=== PATIENT | female | born 1945 | race Asian ===

== ENCOUNTER 2022-08-15 13:29 | Inpatient (IN) | payer OTHER ==
[~2022-08-15] VITALS: Ht 152.4 cm; Wt 54.4 kg
[2022-08-15] MEDS ORDERED: PANT40TA49 PO (14:29)
[2022-08-15] MEDS ORDERED: MOME13HF INH (14:29)
[2022-08-15] MEDS ORDERED: ONDA-97 PO (14:29)
[2022-08-15] MEDS ORDERED: SIME80TA15 PO (14:29)
[2022-08-15] MEDS ORDERED: SENN-261 PO (14:29)
[2022-08-15] MEDS ORDERED: BISA10SU11 RC (14:29)
[2022-08-15] MEDS ORDERED: FERR325T27 PO (14:29)
[2022-08-15] MEDS ORDERED: AMLO-213 PO (14:29)
[2022-08-15] MEDS ORDERED: FOLI0.4T6 PO (14:29)
[2022-08-15] MEDS ORDERED: SODI1TAB66 PO (14:29)
[2022-08-15] MEDS ORDERED: LIDO20SO13 MM (14:29)
[2022-08-15] MEDS ORDERED: IPRA12.9 INH (14:29)
[2022-08-15] MEDS ORDERED: ALBU18HF2 IH (14:29)
[2022-08-15 15:17] LABS: BASOPHILS % (AUTO) 0.2 % (0.0-2.0); HEMATOCRIT 41 % (33-45); LYMPHOCYTES % (AUTO) 18.3 % (20.0-44.0); MEAN CORPUSCULAR HGB CONC 29 g/dl (31.0-36.0); MEAN CORPUSCULAR VOLUME 91 fL (82-100); MONOCYTES % (AUTO) 9.5 % (2.0-12.0); PLATELET COUNT (AUTO) 427 K/uL (150-450); RED BLOOD CELL COUNT(AUTO) 4.54 MIL/uL (4.0-5.2); WHITE BLOOD COUNT (AUTO) 11.1 K/uL (4.3-11.0)
[2022-08-15 15:35] LABS: SERUM AMMONIA 27 umol/L (11-32)
[2022-08-15 15:48] LABS: ALANINE AMINOTRANSFERASE 32 U/L (12-78); ALBUMIN 3.8 g/dL (3.4-5.0); ALKALINE PHOSPHATASE 98 U/L (46-116); ASPARTATE AMINOTRANSFERASE 53 U/L (15-37); BILIRUBIN,DIRECT 0.1 mg/dL (0.0-0.2); BILIRUBIN,TOTAL 0.3 mg/dL (0.2-1.0); CALCIUM, SERUM 9.3 mg/dL (8.5-10.1); CARBON DIOXIDE 23 mmol/L (21-32); CREATININE 2.5 mg/dL (0.6-1.3); GLUCOSE 112 mg/dL (74-106); POTASSIUM 4.3 mmol/L (3.5-5.1); TOTAL PROTEIN, SERUM 9.6 g/dL (6.4-8.2); UREA NITROGEN, BLOOD 30 mg/dL (7-18)
[2022-08-15 16:15] LABS: CHLORIDE 153 mmol/L (98-107); SODIUM SERUM 187 mmol/L (136-145)
[2022-08-15 16:55] LABS: BILIRUBIN,URINE NEGATIVE (NEGATIVE); COLOR,URINE YELLOW (YELLOW); LEUKOCYTE ESTERASE ,URINE NEGATIVE (NEGATIVE); NITRITE, URINE NEGATIVE (NEGATIVE); PROTEIN,URINE NEGATIVE (NEGATIVE); UGLUCOSE NEGATIVE (NEGATIVE); UROBILINOGEN,URINE 0.2 EU/dL (0.2)
[2022-08-15] MEDS ORDERED: VANCOMYCIN 1 GM in IV D5W 250 ML IV ONE (17:00)
[2022-08-15] MEDS ORDERED: PIPERACILLIN /TAZOBACTAM 3.375 G in IV D5W 50 ML IV ONE (17:00)
[2022-08-15] MEDS ORDERED: ACETAMINOPHEN 650 MG/SUPP.RECT RC ONE ×2 (17:00→17:11)
[2022-08-15 17:55] LABS: BACTERIA,URINE 4+ /HPF (None Seen); RBC,URINE 21-50 /HPF (0-2); SQUAMOUS EPITHELIAL CELL,UR 0-2 /HPF (None Seen); WBC,URINE 0-2 /HPF (0-3)
[2022-08-15 18:19] LABS: BAND % (MANUAL) 2 % (0.0-5.0); LYMPHOCYTES % (MANUAL) 15 % (16-48); MONOCYTES % (MANUAL) 1 % (0-11.0); NEUTROPHILS % (MANUAL) 82 (42-76)
[2022-08-15] MEDS ORDERED: ONDANSETRON HCL/PF 4 MG/2 ML VIAL IVP PRN (20:00)
[2022-08-15 20:03] LABS: CALCIUM, SERUM 8.5 mg/dL (8.5-10.1); CARBON DIOXIDE 23 mmol/L (21-32); CREATININE 2.7 mg/dL (0.6-1.3); GLUCOSE 307 mg/dL (74-106); POTASSIUM 2.9 mmol/L (3.5-5.1); UREA NITROGEN, BLOOD 31 mg/dL (7-18)
[2022-08-15] MEDS ORDERED: BISACODYL SUPP (10 MG) 10 MG/SUPP.RECT SUPP.RECT RC PRN (20:30)
[2022-08-15] MEDS ORDERED: ASPIRIN 81 MG TAB.CHEW ONE (20:30)
[2022-08-15] MEDS ORDERED: ASPIRIN 81 MG TAB.CHEW PO ONE (20:30)
[2022-08-15 20:54] LABS: CHLORIDE 150 mmol/L (98-107); SODIUM SERUM 185 mmol/L (136-145)
[2022-08-15] MEDS ORDERED: HEPARIN SODIUM, PORCINE 5000 UNITS/1 ML VIAL SQ SCH (21:00)
[2022-08-15] MEDS: ASPIRIN 81 MG TAB.CHEW PO SCH (21:24)
[2022-08-15 21:30] VITALS: BP 134/76
[2022-08-15 21:47] VITALS: BP 134/76
[2022-08-15] MEDS: ATORVASTATIN 10 MG TABLET PO SCH (21:55)
[2022-08-15] MEDS: POTASSIUM CL. PREMIX PERIPHER. 50 ML IV SCH ×2 (21:55→23:08)
[2022-08-15 22:00] VITALS: BP 166/76
[2022-08-15] MEDS ORDERED: HEPARIN INFUSION/D5W 500 ML IV PRN (22:00)
[2022-08-15] MEDS: IV D5W 1,000 ML IV PRN (22:14)
[2022-08-15 22:46] VITALS: BP 117/74
[2022-08-15 23:00] VITALS: BP 121/82
[2022-08-15] MEDS ORDERED: ENOXAPARIN SODIUM 120 MG/0.8 ML DISP.SYRIN SQ ONE (23:00)
[2022-08-15 23:15] VITALS: BP 118/85
[2022-08-15] MEDS ORDERED: ENOXAPARIN SODIUM 40 MG/0.4 ML DISP.SYRIN SQ ONE (23:45)
[2022-08-16] VITALS (54 sets, daily range): BP systolic 97–157; BP diastolic 23–111
[2022-08-16] MEDS: POTASSIUM CL. PREMIX PERIPHER. 50 ML IV SCH (00:10)
[2022-08-16] MEDS ORDERED: PIPERACILLIN /TAZOBACTAM 2.25 G in IV D5W 50 ML IV SCH (02:00)
[2022-08-16 02:03] LABS: CALCIUM, SERUM 8.4 mg/dL (8.5-10.1); CARBON DIOXIDE 22 mmol/L (21-32); CREATININE 2.8 mg/dL (0.6-1.3); GLUCOSE 204 mg/dL (74-106); POTASSIUM 3.1 mmol/L (3.5-5.1); UREA NITROGEN, BLOOD 30 mg/dL (7-18)
[2022-08-16 02:08] LABS: CHLORIDE 144 mmol/L (98-107); SODIUM SERUM 177 mmol/L (136-145)
[2022-08-16] MEDS ORDERED: PIPERACILLIN /TAZOBACTAM 2.25 G VIAL IV ONE (02:11)
[2022-08-16 05:19] LABS: BASOPHILS % (AUTO) 0.1 % (0.0-2.0); HEMATOCRIT 34 % (33-45); HEMOGLOBIN 10.2 g/dL (11.5-14.8); LYMPHOCYTES # (AUTO) 4.2 K/uL (0.8-4.8); LYMPHOCYTES % (AUTO) 21.4 % (20.0-44.0); MEAN CORPUSCULAR HGB CONC 30 g/dl (31.0-36.0); MEAN CORPUSCULAR VOLUME 89 fL (82-100); MONOCYTES # (AUTO) 1.7 K/uL (0.1-1.30); MONOCYTES % (AUTO) 8.5 % (2.0-12.0); NEUTROPHILS # (AUTO) 13.8 K/uL (1.8-8.9); PLATELET COUNT (AUTO) 349 K/uL (150-450); RED BLOOD CELL COUNT(AUTO) 3.87 MIL/uL (4.0-5.2); WHITE BLOOD COUNT (AUTO) 19.7 K/uL (4.3-11.0)
[2022-08-16 05:20] LABS: CHOLESTEROL 180 mg/dL (<200); HDL CHOLESTEROL 37 mg/dL (40-60); LDL 106 mg/dL (0-99); TRIGLYCERIDES 195 mg/dL (30-150)
[2022-08-16 05:25] LABS: CALCIUM, SERUM 8.7 mg/dL (8.5-10.1); CARBON DIOXIDE 25 mmol/L (21-32); CREATININE 3.2 mg/dL (0.6-1.3); GLUCOSE 162 mg/dL (74-106); MAGNESIUM 2.4 mg/dL (1.8-2.4); PHOSPHORUS 2.8 mg/dL (2.5-4.9); POTASSIUM 3.5 mmol/L (3.5-5.1); UREA NITROGEN, BLOOD 33 mg/dL (7-18)
[2022-08-16 05:29] LABS: CHLORIDE 145 mmol/L (98-107); SODIUM SERUM 181 mmol/L (136-145)
[2022-08-16] MEDS: ALBUTEROL FS 2.5 MG/3 ML VIAL.NEB NEB SCH ×3 (08:03→20:10)
[2022-08-16] MEDS: BUDESONIDE RESPULE INH 0.5 MG/2 ML AMPUL.NEB NEB SCH ×2 (08:03→20:10)
[2022-08-16] MEDS: IV D5W 1,000 ML IV PRN (08:15)
[2022-08-16] MEDS: PANTOPRAZOLE 40 MG VIAL IV SCH (08:17)
[2022-08-16] MEDS: ASPIRIN 81 MG TAB.CHEW PO SCH (09:00)
[2022-08-16] MEDS: FOLIC ACID 1 MG TABLET PO SCH (09:00)
[2022-08-16 09:42] LABS: BAND % (MANUAL) 2 % (0.0-5.0); LYMPHOCYTES % (MANUAL) 22 % (16-48); MONOCYTES % (MANUAL) 4 % (0-11.0); NEUTROPHILS % (MANUAL) 72 (42-76)
[2022-08-16] MEDS: AMLODIPINE BESYLATE 10 MG TABLET PO SCH (11:30)
[2022-08-16] MEDS: PIPERACILLIN /TAZOBACTAM 2.25 G in IV D5W 50 ML IV SCH ×2 (11:30→17:01)
[2022-08-16] MEDS ORDERED: IV D5/ 0.9% NACL 1,000 ML IV PRN (11:30)
[2022-08-16 11:45] LABS: CALCIUM, SERUM 8.2 mg/dL (8.5-10.1); CARBON DIOXIDE 23 mmol/L (21-32); CREATININE 3.5 mg/dL (0.6-1.3); GLUCOSE 185 mg/dL (74-106); POTASSIUM 3.1 mmol/L (3.5-5.1); UREA NITROGEN, BLOOD 33 mg/dL (7-18)
[2022-08-16 12:06] LABS: CHLORIDE 138 mmol/L (98-107); SODIUM SERUM 173 mmol/L (136-145)
[2022-08-16 15:51] LABS: CALCIUM, SERUM 8.3 mg/dL (8.5-10.1); CARBON DIOXIDE 25 mmol/L (21-32); CREATININE 3.5 mg/dL (0.6-1.3); GLUCOSE 161 mg/dL (74-106); POTASSIUM 3.3 mmol/L (3.5-5.1); UREA NITROGEN, BLOOD 30 mg/dL (7-18)
[2022-08-16 16:08] LABS: CHLORIDE 138 mmol/L (98-107); SODIUM SERUM 176 mmol/L (136-145)
[2022-08-16 20:13] LABS: CALCIUM, SERUM 8.5 mg/dL (8.5-10.1); CARBON DIOXIDE 23 mmol/L (21-32); CREATININE 3.5 mg/dL (0.6-1.3); GLUCOSE 94 mg/dL (74-106); POTASSIUM 3.2 mmol/L (3.5-5.1); UREA NITROGEN, BLOOD 27 mg/dL (7-18)
[2022-08-16 20:19] LABS: CHLORIDE 137 mmol/L (98-107); SODIUM SERUM 175 mmol/L (136-145)
[2022-08-16] MEDS: IV D5/ 0.9% NACL 1,000 ML IV SCH (20:30)
[2022-08-16] MEDS ORDERED: ENOXAPARIN SODIUM 40 MG/0.4 ML DISP.SYRIN SQ SCH ×2 (21:00)
[2022-08-16] MEDS: ATORVASTATIN 10 MG TABLET PO SCH (21:53)
[2022-08-16] MEDS: ENOXAPARIN SODIUM 40 MG/0.4 ML DISP.SYRIN SQ SCH (21:56)
[2022-08-16 23:16] LABS: CALCIUM, SERUM 8.6 mg/dL (8.5-10.1); CARBON DIOXIDE 20 mmol/L (21-32); CREATININE 3.4 mg/dL (0.6-1.3); GLUCOSE 107 mg/dL (74-106); POTASSIUM 2.9 mmol/L (3.5-5.1); UREA NITROGEN, BLOOD 26 mg/dL (7-18)
[2022-08-16 23:20] LABS: SODIUM SERUM 169 mmol/L (136-145)
[2022-08-16 23:21] LABS: CHLORIDE 134 mmol/L (98-107)
[2022-08-17] VITALS (26 sets, daily range): BP systolic 109–157; BP diastolic 44–118
[2022-08-17] MEDS: PIPERACILLIN /TAZOBACTAM 2.25 G in IV D5W 50 ML IV SCH ×5 (00:07→23:59)
[2022-08-17] MEDS: ALBUTEROL FS 2.5 MG/3 ML VIAL.NEB NEB SCH ×4 (01:30→20:46)
[2022-08-17 03:35] LABS: BASOPHILS % (AUTO) 0.2 % (0.0-2.0); EOSINOPHILS % (AUTO) 0.1 % (0.0-6.0); HEMATOCRIT 27 % (33-45); HEMOGLOBIN 8.2 g/dL (11.5-14.8); LYMPHOCYTES # (AUTO) 4.7 K/uL (0.8-4.8); LYMPHOCYTES % (AUTO) 28.1 % (20.0-44.0); MEAN CORPUSCULAR HGB CONC 30 g/dl (31.0-36.0); MEAN CORPUSCULAR VOLUME 88 fL (82-100); MONOCYTES # (AUTO) 1.1 K/uL (0.1-1.30); MONOCYTES % (AUTO) 6.8 % (2.0-12.0); NEUTROPHILS # (AUTO) 10.9 K/uL (1.8-8.9); NEUTROPHILS % (AUTO) 64.8 % (43.0-81.0); PLATELET COUNT (AUTO) 244 K/uL (150-450); RED BLOOD CELL COUNT(AUTO) 3.12 MIL/uL (4.0-5.2); WHITE BLOOD COUNT (AUTO) 16.8 K/uL (4.3-11.0)
[2022-08-17 03:56] LABS: CALCIUM, SERUM 8.3 mg/dL (8.5-10.1); CARBON DIOXIDE 23 mmol/L (21-32); CREATININE 3.2 mg/dL (0.6-1.3); GLUCOSE 186 mg/dL (74-106); POTASSIUM 2.9 mmol/L (3.5-5.1); UREA NITROGEN, BLOOD 24 mg/dL (7-18)
[2022-08-17 04:00] LABS: CHLORIDE 132 mmol/L (98-107); SODIUM SERUM 168 mmol/L (136-145)
[2022-08-17 04:03] LABS: CALCIUM, SERUM 8.3 mg/dL (8.5-10.1); CARBON DIOXIDE 23 mmol/L (21-32); CREATININE 3.2 mg/dL (0.6-1.3); GLUCOSE 189 mg/dL (74-106); MAGNESIUM 1.7 mg/dL (1.8-2.4); PHOSPHORUS 4.7 mg/dL (2.5-4.9); UREA NITROGEN, BLOOD 24 mg/dL (7-18)
[2022-08-17 04:09] LABS: CHLORIDE 133 mmol/L (98-107); SODIUM SERUM 169 mmol/L (136-145)
[2022-08-17] MEDS: VANCOMYCIN 500 MG in IV D5W 100 ML IV SCH (06:08)
[2022-08-17] MEDS: IV D5/ 0.9% NACL 1,000 ML IV SCH ×2 (06:30→15:16)
[2022-08-17] MEDS: BUDESONIDE RESPULE INH 0.5 MG/2 ML AMPUL.NEB NEB SCH ×2 (07:42→20:44)
[2022-08-17] MEDS: PANTOPRAZOLE 40 MG VIAL IV SCH (08:03)
[2022-08-17] MEDS: FOLIC ACID 1 MG TABLET PO SCH (08:04)
[2022-08-17] MEDS: AMLODIPINE BESYLATE 10 MG TABLET PO SCH (08:04)
[2022-08-17] MEDS: ASPIRIN 81 MG TAB.CHEW PO SCH (08:04)
[2022-08-17] MEDS ORDERED: FERROUS SULFATE (325 MG) 325 MG/TAB TABLET PO SCH (09:00)
[2022-08-17] MEDS: POTASSIUM CHLORIDE 20 MEQ TAB.PRT.SR PO SCH (09:29)
[2022-08-17] MEDS: Magnesium 1GM/D5W 100ML PREMIX 100 ML IV SCH ×2 (11:02→12:19)
[2022-08-17] MEDS: IV NS 0.9% 250 ML IV PRN (11:02)
[2022-08-17 11:25] LABS: CALCIUM, SERUM 7.7 mg/dL (8.5-10.1); CARBON DIOXIDE 22 mmol/L (21-32); CREATININE 2.9 mg/dL (0.6-1.3); GLUCOSE 152 mg/dL (74-106); UREA NITROGEN, BLOOD 19 mg/dL (7-18)
[2022-08-17 11:36] LABS: POTASSIUM 3.5 mmol/L (3.5-5.1)
[2022-08-17 11:57] LABS: SODIUM SERUM 159 mmol/L (136-145)
[2022-08-17 11:58] LABS: CHLORIDE 128 mmol/L (98-107)
[2022-08-17 15:00] LABS: CARBON DIOXIDE 22 mmol/L (21-32); CHLORIDE 123 mmol/L (98-107); CREATININE 2.7 mg/dL (0.6-1.3); GLUCOSE 173 mg/dL (74-106); POTASSIUM 3.3 mmol/L (3.5-5.1); UREA NITROGEN, BLOOD 18 mg/dL (7-18)
[2022-08-17 15:05] LABS: SODIUM SERUM 156 mmol/L (136-145)
[2022-08-17] MEDS ORDERED: JEVITY 1.2 CAL 1,000 ML BOTTLE GT PRN (18:00)
[2022-08-17 19:02] LABS: CALCIUM, SERUM 7.5 mg/dL (8.5-10.1); CARBON DIOXIDE 21 mmol/L (21-32); CHLORIDE 122 mmol/L (98-107); CREATININE 2.5 mg/dL (0.6-1.3); GLUCOSE 176 mg/dL (74-106); POTASSIUM 3.8 mmol/L (3.5-5.1); SODIUM SERUM 153 mmol/L (136-145); UREA NITROGEN, BLOOD 15 mg/dL (7-18)
[2022-08-17] MEDS: ATORVASTATIN 10 MG TABLET PO SCH (22:00)
[2022-08-17] MEDS: ENOXAPARIN SODIUM 40 MG/0.4 ML DISP.SYRIN SQ SCH (22:02)
[2022-08-17 23:22] LABS: CALCIUM, SERUM 7.5 mg/dL (8.5-10.1); CARBON DIOXIDE 23 mmol/L (21-32); CHLORIDE 121 mmol/L (98-107); CREATININE 2.4 mg/dL (0.6-1.3); GLUCOSE 177 mg/dL (74-106); SODIUM SERUM 152 mmol/L (136-145); UREA NITROGEN, BLOOD 14 mg/dL (7-18)
[2022-08-18] VITALS (56 sets, daily range): BP systolic 65–170; BP diastolic 36–118
[2022-08-18] MEDS: ALBUTEROL FS 2.5 MG/3 ML VIAL.NEB NEB SCH ×4 (01:28→20:08)
[2022-08-18] MEDS: IV D5/ 0.9% NACL 1,000 ML IV SCH ×3 (01:37→22:40)
[2022-08-18 03:45] LABS: BASOPHILS % (AUTO) 0.1 % (0.0-2.0); EOSINOPHILS % (AUTO) 0.5 % (0.0-6.0); HEMATOCRIT 27 % (33-45); HEMOGLOBIN 8.3 g/dL (11.5-14.8); MEAN CORPUSCULAR HGB CONC 31 g/dl (31.0-36.0); MEAN CORPUSCULAR VOLUME 86 fL (82-100); MONOCYTES # (AUTO) 1.1 K/uL (0.1-1.30); MONOCYTES % (AUTO) 6.8 % (2.0-12.0); NEUTROPHILS # (AUTO) 9.5 K/uL (1.8-8.9); NEUTROPHILS % (AUTO) 60.6 % (43.0-81.0); PLATELET COUNT (AUTO) 227 K/uL (150-450); WHITE BLOOD COUNT (AUTO) 15.6 K/uL (4.3-11.0)
[2022-08-18 03:53] LABS: CALCIUM, SERUM 7.5 mg/dL (8.5-10.1); CARBON DIOXIDE 20 mmol/L (21-32); CHLORIDE 118 mmol/L (98-107); CREATININE 2.4 mg/dL (0.6-1.3); GLUCOSE 229 mg/dL (74-106); UREA NITROGEN, BLOOD 15 mg/dL (7-18)
[2022-08-18 03:57] LABS: CALCIUM, SERUM 7.4 mg/dL (8.5-10.1); CARBON DIOXIDE 20 mmol/L (21-32); CHLORIDE 118 mmol/L (98-107); CREATININE 2.4 mg/dL (0.6-1.3); GLUCOSE 223 mg/dL (74-106); MAGNESIUM 2.1 mg/dL (1.8-2.4); PHOSPHORUS 3.2 mg/dL (2.5-4.9); SODIUM SERUM 147 mmol/L (136-145); UREA NITROGEN, BLOOD 14 mg/dL (7-18)
[2022-08-18 04:09] LABS: POTASSIUM 2.8 mmol/L (3.5-5.1)
[2022-08-18 04:10] LABS: POTASSIUM 2.8 mmol/L (3.5-5.1)
[2022-08-18] MEDS: POTASSIUM CL. PREMIX PERIPHER. 50 ML IV SCH ×8 (04:26→22:52)
[2022-08-18] MEDS ORDERED: POTASSIUM CHLORIDE 10 MEQ/50 ML PREMIXED IVPB FOR PERIPHERAL LINE IV ONE (04:30)
[2022-08-18] MEDS: PIPERACILLIN /TAZOBACTAM 2.25 G in IV D5W 50 ML IV SCH ×4 (05:47→23:44)
[2022-08-18] MEDS: BUDESONIDE RESPULE INH 0.5 MG/2 ML AMPUL.NEB NEB SCH (07:08)
[2022-08-18 08:13] LABS: ABG BASE EXCESS -14.5 mmol/L; ABG OXYGEN SATURATION 99.8 % (92.0-98.5); ABG PCO2 41.6 mmHg (35.0-45.0); ABG PH 7.135 (7.350-7.450); ABG PO2 593.1 mmHg (75.0-100.0); AaDO2 78.3 mmHg; COHb 0.2 % (0.5-1.5); MetHb 0.3 % (0.0-1.5); O2Hb 99.3 % (94.0-97.0); SITE, ABG Right Radial; VENT MODE, BG AC 20 400 +5 100%
[2022-08-18] MEDS: FOLIC ACID 1 MG TABLET PO SCH (08:17)
[2022-08-18] MEDS: ASPIRIN 81 MG TAB.CHEW PO SCH (08:17)
[2022-08-18] MEDS: PANTOPRAZOLE 40 MG VIAL IV SCH (08:17)
[2022-08-18] MEDS: AMLODIPINE BESYLATE 10 MG TABLET PO SCH (08:18)
[2022-08-18] MEDS: POTASSIUM CHLORIDE 20 MEQ TAB.PRT.SR PO SCH (08:18)
[2022-08-18] MEDS ORDERED: IV NS 0.9% 500 ML IV ONE (09:00)
[2022-08-18] MEDS ORDERED: EPINEPHRINE (1:10,000) SYRINGE 1 MG/10 ML DISP.SYRIN IVP ONE (09:39)
[2022-08-18 10:05] LABS: ALBUMIN 2.5 g/dL (3.4-5.0); ALKALINE PHOSPHATASE 69 U/L (46-116); BILIRUBIN,TOTAL 0.4 mg/dL (0.2-1.0); CALCIUM, SERUM 7.4 mg/dL (8.5-10.1); CARBON DIOXIDE 16 mmol/L (21-32); CHLORIDE 117 mmol/L (98-107); CREATININE 2.3 mg/dL (0.6-1.3); GLUCOSE 218 mg/dL (74-106); POTASSIUM 2.9 mmol/L (3.5-5.1); SODIUM SERUM 148 mmol/L (136-145); TOTAL PROTEIN, SERUM 6.1 g/dL (6.4-8.2)
[2022-08-18 11:41] LABS: ALANINE AMINOTRANSFERASE 44 U/L (12-78); ASPARTATE AMINOTRANSFERASE 35 U/L (15-37); UREA NITROGEN, BLOOD 15 mg/dL (7-18)
[2022-08-18 13:48] LABS: CALCIUM, SERUM 7.1 mg/dL (8.5-10.1); CARBON DIOXIDE 19 mmol/L (21-32); CHLORIDE 118 mmol/L (98-107); CREATININE 2.6 mg/dL (0.6-1.3); GLUCOSE 270 mg/dL (74-106); POTASSIUM 4.1 mmol/L (3.5-5.1); SODIUM SERUM 147 mmol/L (136-145); UREA NITROGEN, BLOOD 20 mg/dL (7-18)
[2022-08-18 15:33] LABS: CALCIUM, SERUM 7.3 mg/dL (8.5-10.1); CARBON DIOXIDE 19 mmol/L (21-32); CHLORIDE 117 mmol/L (98-107); CREATININE 2.6 mg/dL (0.6-1.3); GLUCOSE 285 mg/dL (74-106); POTASSIUM 3.6 mmol/L (3.5-5.1); SODIUM SERUM 147 mmol/L (136-145); UREA NITROGEN, BLOOD 22 mg/dL (7-18)
[2022-08-18] MEDS: PROPOFOL 100 ML IV PRN (18:13)
[2022-08-18] MEDS: PHENYLEPHRINE 50 MG in IV NS 0.9% 245 ML IV PRN (18:40)
[2022-08-18 18:49] LABS: CALCIUM, SERUM 6.7 mg/dL (8.5-10.1); CARBON DIOXIDE 16 mmol/L (21-32); CHLORIDE 119 mmol/L (98-107); CREATININE 2.5 mg/dL (0.6-1.3); POTASSIUM 3.3 mmol/L (3.5-5.1); SODIUM SERUM 148 mmol/L (136-145); UREA NITROGEN, BLOOD 21 mg/dL (7-18)
[2022-08-18 18:55] LABS: GLUCOSE 656 mg/dL (74-106)
[2022-08-18] MEDS: VANCOMYCIN 500 MG in IV D5W 100 ML IV SCH (19:07)
[2022-08-18] MEDS: ENOXAPARIN SODIUM 30 MG/0.3 ML DISP.SYRIN SQ SCH (20:46)
[2022-08-18] MEDS: ATORVASTATIN 10 MG TABLET PO SCH (21:06)
[2022-08-19] VITALS (75 sets, daily range): BP systolic 79–151; BP diastolic 23–100
[2022-08-19] MEDS: ALBUTEROL FS 2.5 MG/3 ML VIAL.NEB NEB SCH ×4 (01:18→19:37)
[2022-08-19] MEDS: IV D5W 1,000 ML IV PRN ×3 (03:29→21:34)
[2022-08-19 05:06] LABS: HEMATOCRIT 25 % (33-45); HEMOGLOBIN 7.8 g/dL (11.5-14.8); LYMPHOCYTES # (AUTO) 3.3 K/uL (0.8-4.8); LYMPHOCYTES % (AUTO) 13.8 % (20.0-44.0); MEAN CORPUSCULAR HGB CONC 31 g/dl (31.0-36.0); MEAN CORPUSCULAR VOLUME 87 fL (82-100); MONOCYTES % (AUTO) 4.3 % (2.0-12.0); NEUTROPHILS # (AUTO) 19.9 K/uL (1.8-8.9); NEUTROPHILS % (AUTO) 81.9 % (43.0-81.0); PLATELET COUNT (AUTO) 194 K/uL (150-450); RED BLOOD CELL COUNT(AUTO) 2.94 MIL/uL (4.0-5.2); WHITE BLOOD COUNT (AUTO) 24.3 K/uL (4.3-11.0)
[2022-08-19] MEDS: PIPERACILLIN /TAZOBACTAM 2.25 G in IV D5W 50 ML IV SCH ×3 (05:13→17:14)
[2022-08-19 05:16] LABS: CALCIUM, SERUM 7.7 mg/dL (8.5-10.1); CARBON DIOXIDE 18 mmol/L (21-32); CHLORIDE 118 mmol/L (98-107); CREATININE 2.8 mg/dL (0.6-1.3); GLUCOSE 257 mg/dL (74-106); POTASSIUM 3.7 mmol/L (3.5-5.1); SODIUM SERUM 149 mmol/L (136-145); UREA NITROGEN, BLOOD 26 mg/dL (7-18)
[2022-08-19 05:22] LABS: ALANINE AMINOTRANSFERASE 74 U/L (12-78); ALKALINE PHOSPHATASE 70 U/L (46-116); ASPARTATE AMINOTRANSFERASE 38 U/L (15-37); BILIRUBIN,TOTAL 0.4 mg/dL (0.2-1.0); TOTAL PROTEIN, SERUM 5.6 g/dL (6.4-8.2)
[2022-08-19] MEDS: PROPOFOL 100 ML IV PRN ×2 (05:43→16:05)
[2022-08-19 05:45] LABS: ABG BASE EXCESS -7.1 mmol/L; ABG OXYGEN SATURATION 97.9 % (92.0-98.5); ABG PCO2 27.9 mmHg (35.0-45.0); ABG PH 7.391 (7.350-7.450); ABG PO2 117.6 mmHg (75.0-100.0); AaDO2 135.5 mmHg; COHb 0.3 % (0.5-1.5); MetHb 0.1 % (0.0-1.5); O2Hb 97.5 % (94.0-97.0); PEEP,BG 0 cm H2O; SITE, ABG Right Radial; VENT MODE, BG AC 28 450 40% +0; VT, ABG 450 mL
[2022-08-19] MEDS ORDERED: Calcium Gluconate 1GM/10ML 9.3 MEQ in IV NS 0.9% 100 ML IV ONE (07:00)
[2022-08-19] MEDS: AMLODIPINE BESYLATE 10 MG TABLET PO SCH (08:11)
[2022-08-19] MEDS: PANTOPRAZOLE 40 MG VIAL IV SCH (08:33)
[2022-08-19] MEDS: POTASSIUM CHLORIDE 20 MEQ POWDER PACKET GT SCH (08:34)
[2022-08-19] MEDS: ASPIRIN 81 MG TAB.CHEW PO SCH (08:34)
[2022-08-19] MEDS: FOLIC ACID 1 MG TABLET PO SCH (08:34)
[2022-08-19] MEDS: IV D5/ 0.9% NACL 1,000 ML IV SCH (08:35)
[2022-08-19] MEDS: NEPRO 1,000 ML BOTTLE GT PRN (16:03)
[2022-08-19] MEDS: PHENYLEPHRINE 50 MG in IV NS 0.9% 245 ML IV PRN (16:04)
[2022-08-19] MEDS: IV NS 0.9% 250 ML IV PRN (17:24)
[2022-08-19] MEDS: ENOXAPARIN SODIUM 30 MG/0.3 ML DISP.SYRIN SQ SCH (21:32)
[2022-08-19] MEDS: ATORVASTATIN 10 MG TABLET PO SCH (21:32)
[2022-08-20] VITALS (106 sets, daily range): BP systolic 77–171; BP diastolic 17–117
[2022-08-20] MEDS: PIPERACILLIN /TAZOBACTAM 2.25 G in IV D5W 50 ML IV SCH ×5 (00:02→23:37)
[2022-08-20] MEDS: ALBUTEROL FS 2.5 MG/3 ML VIAL.NEB NEB SCH ×5 (01:10→19:50)
[2022-08-20] MEDS: PROPOFOL 100 ML IV PRN ×3 (01:27→21:00)
[2022-08-20] MEDS: ACETAMINOPHEN 325 MG TABLET PO PRN (02:14)
[2022-08-20 05:10] LABS: ABG BASE EXCESS -10.4 mmol/L; ABG OXYGEN SATURATION 99.1 % (92.0-98.5); ABG PCO2 25.4 mmHg (35.0-45.0); ABG PH 7.356 (7.350-7.450); ABG PO2 160.7 mmHg (75.0-100.0); AaDO2 95.3 mmHg; COHb 0.2 % (0.5-1.5); MetHb 0.1 % (0.0-1.5); O2Hb 98.8 % (94.0-97.0); PEEP,BG 0 cm H2O; SITE, ABG Left Radial; VENT MODE, BG AC 28 450 40% 0
[2022-08-20] MEDS: IV D5W 1,000 ML IV PRN (05:13)
[2022-08-20 05:24] LABS: ALANINE AMINOTRANSFERASE 44 U/L (12-78); ALBUMIN 1.7 g/dL (3.4-5.0); ALKALINE PHOSPHATASE 71 U/L (46-116); ASPARTATE AMINOTRANSFERASE 23 U/L (15-37); BASOPHILS # (AUTO) 0.1 K/uL (0.0-0.2); BASOPHILS % (AUTO) 0.2 % (0.0-2.0); BILIRUBIN,TOTAL 0.3 mg/dL (0.2-1.0); CALCIUM, SERUM 7.6 mg/dL (8.5-10.1); CARBON DIOXIDE 15 mmol/L (21-32); CHLORIDE 110 mmol/L (98-107); CREATININE 3.5 mg/dL (0.6-1.3); EOSINOPHILS % (AUTO) 1.2 % (0.0-6.0); GLUCOSE 153 mg/dL (74-106); HEMATOCRIT 23 % (33-45); LYMPHOCYTES # (AUTO) 3.4 K/uL (0.8-4.8); LYMPHOCYTES % (AUTO) 14.3 % (20.0-44.0); MEAN CORPUSCULAR HGB CONC 30 g/dl (31.0-36.0); MEAN CORPUSCULAR VOLUME 87 fL (82-100); MONOCYTES # (AUTO) 1.4 K/uL (0.1-1.30); NEUTROPHILS # (AUTO) 18.5 K/uL (1.8-8.9); NEUTROPHILS % (AUTO) 78.3 % (43.0-81.0); PLATELET COUNT (AUTO) 151 K/uL (150-450); RED BLOOD CELL COUNT(AUTO) 2.64 MIL/uL (4.0-5.2); SODIUM SERUM 138 mmol/L (136-145); TOTAL PROTEIN, SERUM 5.3 g/dL (6.4-8.2); UREA NITROGEN, BLOOD 30 mg/dL (7-18); WHITE BLOOD COUNT (AUTO) 23.7 K/uL (4.3-11.0)
[2022-08-20 05:49] LABS: HEMOGLOBIN 6.8 g/dL (11.5-14.8)
[2022-08-20] MEDS: VANCOMYCIN 500 MG in IV D5W 100 ML IV SCH (06:06)
[2022-08-20] MEDS: IV NS 0.9% 1,000 ML IV SCH ×3 (08:05→23:37)
[2022-08-20] MEDS: FOLIC ACID 1 MG TABLET PO SCH (08:07)
[2022-08-20] MEDS: POTASSIUM CHLORIDE 20 MEQ POWDER PACKET GT SCH (08:07)
[2022-08-20] MEDS: PANTOPRAZOLE 40 MG VIAL IV SCH (08:07)
[2022-08-20] MEDS: ASPIRIN 81 MG TAB.CHEW PO SCH (08:07)
[2022-08-20] MEDS: AMLODIPINE BESYLATE 10 MG TABLET PO SCH (08:07)
[2022-08-20 13:56] LABS: BAND % (MANUAL) 9 % (0.0-5.0); LYMPHOCYTES % (MANUAL) 18 % (16-48); MONOCYTES % (MANUAL) 4 % (0-11.0); MYELOCYTES % 1 % (0-0); NEUTROPHILS % (MANUAL) 68 (42-76)
[2022-08-20] MEDS: hydrALAZINE HCL IV 20 MG VIAL IV PRN (14:19)
[2022-08-20 19:45] LABS: HEMOGLOBIN 9.4 g/dL (11.5-14.8)
[2022-08-20] MEDS: ENOXAPARIN SODIUM 30 MG/0.3 ML DISP.SYRIN SQ SCH (21:00)
[2022-08-20] MEDS: ATORVASTATIN 10 MG TABLET PO SCH (21:00)
[2022-08-21] VITALS (96 sets, daily range): BP systolic 101–162; BP diastolic 53–86
[2022-08-21] MEDS: ALBUTEROL FS 2.5 MG/3 ML VIAL.NEB NEB SCH ×4 (02:11→20:23)
[2022-08-21] MEDS: NEPRO 1,000 ML BOTTLE GT PRN (02:58)
[2022-08-21] MEDS: PROPOFOL 100 ML IV PRN ×3 (04:33→19:32)
[2022-08-21 05:05] LABS: BASOPHILS % (AUTO) 0.1 % (0.0-2.0); EOSINOPHILS % (AUTO) 1.2 % (0.0-6.0); HEMATOCRIT 30 % (33-45); HEMOGLOBIN 9.3 g/dL (11.5-14.8); LYMPHOCYTES % (AUTO) 12.6 % (20.0-44.0); MEAN CORPUSCULAR HGB CONC 31 g/dl (31.0-36.0); MEAN CORPUSCULAR VOLUME 86 fL (82-100); MONOCYTES # (AUTO) 1.6 K/uL (0.1-1.30); MONOCYTES % (AUTO) 6.6 % (2.0-12.0); NEUTROPHILS # (AUTO) 19.1 K/uL (1.8-8.9); NEUTROPHILS % (AUTO) 79.5 % (43.0-81.0); PLATELET COUNT (AUTO) 152 K/uL (150-450); RED BLOOD CELL COUNT(AUTO) 3.43 MIL/uL (4.0-5.2); WHITE BLOOD COUNT (AUTO) 24.1 K/uL (4.3-11.0)
[2022-08-21 05:19] LABS: ALANINE AMINOTRANSFERASE 33 U/L (12-78); ALBUMIN 1.7 g/dL (3.4-5.0); ALKALINE PHOSPHATASE 95 U/L (46-116); ASPARTATE AMINOTRANSFERASE 35 U/L (15-37); BILIRUBIN,TOTAL 0.3 mg/dL (0.2-1.0); CALCIUM, SERUM 7.7 mg/dL (8.5-10.1); CARBON DIOXIDE 15 mmol/L (21-32); CHLORIDE 112 mmol/L (98-107); CREATININE 3.2 mg/dL (0.6-1.3); GLUCOSE 132 mg/dL (74-106); POTASSIUM 4.3 mmol/L (3.5-5.1); SODIUM SERUM 139 mmol/L (136-145); TOTAL PROTEIN, SERUM 5.9 g/dL (6.4-8.2); UREA NITROGEN, BLOOD 32 mg/dL (7-18)
[2022-08-21] MEDS: PIPERACILLIN /TAZOBACTAM 2.25 G in IV D5W 50 ML IV SCH ×4 (05:30→23:58)
[2022-08-21] MEDS: PANTOPRAZOLE 40 MG VIAL IV SCH (08:09)
[2022-08-21] MEDS: ASPIRIN 81 MG TAB.CHEW PO SCH (08:09)
[2022-08-21] MEDS: FOLIC ACID 1 MG TABLET PO SCH (08:09)
[2022-08-21] MEDS: IV NS 0.9% 1,000 ML IV SCH ×3 (08:09→23:57)
[2022-08-21] MEDS: AMLODIPINE BESYLATE 10 MG TABLET PO SCH (08:09)
[2022-08-21] MEDS: POTASSIUM CHLORIDE 20 MEQ POWDER PACKET GT SCH (08:10)
[2022-08-21 09:38] LABS: ABG BASE EXCESS -11.2 mmol/L; ABG OXYGEN SATURATION 98.8 % (92.0-98.5); ABG PCO2 26.6 mmHg (35.0-45.0); ABG PH 7.322 (7.350-7.450); ABG PO2 155.1 mmHg (75.0-100.0); AaDO2 99.5 mmHg; COHb 0.3 % (0.5-1.5); MetHb 0.3 % (0.0-1.5); O2Hb 98.2 % (94.0-97.0); SITE, ABG Right Brachial; VENT MODE, BG AC 28 450 +0 40%
[2022-08-21] MEDS: CITRIC ACID/SODIUM CITRATE (BICITRA)15 ML UDC PO SCH ×3 (12:02→21:12)
[2022-08-21 13:41] LABS: HEMOGLOBIN 8.8 g/dL (11.5-14.8)
[2022-08-21] MEDS: VANCOMYCIN 500 MG in IV D5W 100 ML IV SCH (17:53)
[2022-08-21] MEDS: ACETAMINOPHEN 325 MG TABLET PO PRN (19:31)
[2022-08-21] MEDS: ENOXAPARIN SODIUM 30 MG/0.3 ML DISP.SYRIN SQ SCH (21:00)
[2022-08-21] MEDS: ATORVASTATIN 10 MG TABLET PO SCH (21:12)
[2022-08-21 21:22] LABS: HEMOGLOBIN 8.4 g/dL (11.5-14.8)
[2022-08-22] VITALS (79 sets, daily range): BP systolic 107–165; BP diastolic 34–81
[2022-08-22] MEDS: PROPOFOL 100 ML IV PRN ×5 (01:32→22:54)
[2022-08-22] MEDS: ALBUTEROL FS 2.5 MG/3 ML VIAL.NEB NEB SCH ×4 (01:44→20:11)
[2022-08-22] MEDS: NEPRO 1,000 ML BOTTLE GT PRN (04:06)
[2022-08-22 04:45] LABS: BASOPHILS % (AUTO) 0.1 % (0.0-2.0); HEMATOCRIT 27 % (33-45); HEMOGLOBIN 8.5 g/dL (11.5-14.8); LYMPHOCYTES # (AUTO) 2.1 K/uL (0.8-4.8); LYMPHOCYTES % (AUTO) 10.3 % (20.0-44.0); MEAN CORPUSCULAR HGB CONC 32 g/dl (31.0-36.0); MEAN CORPUSCULAR VOLUME 86 fL (82-100); MONOCYTES # (AUTO) 1.8 K/uL (0.1-1.30); MONOCYTES % (AUTO) 8.8 % (2.0-12.0); NEUTROPHILS # (AUTO) 16.2 K/uL (1.8-8.9); NEUTROPHILS % (AUTO) 79.8 % (43.0-81.0); PLATELET COUNT (AUTO) 170 K/uL (150-450); RED BLOOD CELL COUNT(AUTO) 3.11 MIL/uL (4.0-5.2); WHITE BLOOD COUNT (AUTO) 20.3 K/uL (4.3-11.0)
[2022-08-22 04:50] LABS: CALCIUM, SERUM 7.8 mg/dL (8.5-10.1); CARBON DIOXIDE 15 mmol/L (21-32); CHLORIDE 112 mmol/L (98-107); CREATININE 3.1 mg/dL (0.6-1.3); GLUCOSE 157 mg/dL (74-106); POTASSIUM 3.9 mmol/L (3.5-5.1); SODIUM SERUM 141 mmol/L (136-145); UREA NITROGEN, BLOOD 34 mg/dL (7-18)
[2022-08-22 05:15] LABS: ALANINE AMINOTRANSFERASE 24 U/L (12-78); ALBUMIN 1.6 g/dL (3.4-5.0); ALKALINE PHOSPHATASE 112 U/L (46-116); ASPARTATE AMINOTRANSFERASE 40 U/L (15-37); BILIRUBIN,TOTAL 0.3 mg/dL (0.2-1.0); TOTAL PROTEIN, SERUM 5.8 g/dL (6.4-8.2)
[2022-08-22 05:22] LABS: ABG BASE EXCESS -10.4 mmol/L; ABG OXYGEN SATURATION 95.5 % (92.0-98.5); ABG PCO2 27.1 mmHg (35.0-45.0); ABG PH 7.336 (7.350-7.450); ABG PO2 84.5 mmHg (75.0-100.0); AaDO2 97.6 mmHg; COHb 0.3 % (0.5-1.5); MetHb 0.1 % (0.0-1.5); O2Hb 95.1 % (94.0-97.0); PEEP,BG 0 cm H2O; SITE, ABG Left Radial
[2022-08-22] MEDS: PIPERACILLIN /TAZOBACTAM 2.25 G in IV D5W 50 ML IV SCH (05:30)
[2022-08-22] MEDS: FOLIC ACID 1 MG TABLET PO SCH (08:19)
[2022-08-22] MEDS: POTASSIUM CHLORIDE 20 MEQ POWDER PACKET GT SCH (08:19)
[2022-08-22] MEDS: CITRIC ACID/SODIUM CITRATE (BICITRA)15 ML UDC PO SCH ×4 (08:19→21:08)
[2022-08-22] MEDS: AMLODIPINE BESYLATE 10 MG TABLET PO SCH (08:19)
[2022-08-22] MEDS: ASPIRIN 81 MG TAB.CHEW PO SCH (08:19)
[2022-08-22] MEDS: PANTOPRAZOLE 40 MG/PACK PACK GT SCH (08:19)
[2022-08-22] MEDS: IV NS 0.9% 1,000 ML IV SCH (08:20)
[2022-08-22] MEDS ORDERED: MEROPENEM 1 G in IV NS 0.9% 100 ML IV SCH (10:00)
[2022-08-22] MEDS: MEROPENEM 500 MG in IV NS 0.9% 50 ML IV SCH (12:49)
[2022-08-22 12:59] LABS: HEMOGLOBIN 7.3 g/dL (11.5-14.8)
[2022-08-22] MEDS: IV NS 0.9% 250 ML IV PRN (16:44)
[2022-08-22] MEDS: ENOXAPARIN SODIUM 30 MG/0.3 ML DISP.SYRIN SQ SCH (21:00)
[2022-08-22] MEDS: ATORVASTATIN 10 MG TABLET PO SCH (21:08)
[2022-08-22 21:21] LABS: HEMOGLOBIN 8.2 g/dL (11.5-14.8)
[2022-08-23] VITALS (39 sets, daily range): BP systolic 106–153; BP diastolic 51–90
[2022-08-23] MEDS: ALBUTEROL FS 2.5 MG/3 ML VIAL.NEB NEB SCH ×4 (02:08→20:00)
[2022-08-23] MEDS: PROPOFOL 100 ML IV PRN ×2 (02:13→06:08)
[2022-08-23] MEDS: NEPRO 1,000 ML BOTTLE GT PRN (02:46)
[2022-08-23 04:03] LABS: HEMOGLOBIN 8.1 g/dL (11.5-14.8)
[2022-08-23 04:35] LABS: ALANINE AMINOTRANSFERASE 33 U/L (12-78); ALBUMIN 1.5 g/dL (3.4-5.0); ALKALINE PHOSPHATASE 159 U/L (46-116); ASPARTATE AMINOTRANSFERASE 76 U/L (15-37); BILIRUBIN,TOTAL 0.3 mg/dL (0.2-1.0); CALCIUM, SERUM 8.6 mg/dL (8.5-10.1); CARBON DIOXIDE 26 mmol/L (21-32); CHLORIDE 105 mmol/L (98-107); CREATININE 1.8 mg/dL (0.6-1.3); GLUCOSE 104 mg/dL (74-106); POTASSIUM 3.6 mmol/L (3.5-5.1); SODIUM SERUM 139 mmol/L (136-145); TOTAL PROTEIN, SERUM 5.8 g/dL (6.4-8.2); UREA NITROGEN, BLOOD 18 mg/dL (7-18)
[2022-08-23 05:41] LABS: ABG BASE EXCESS 0.4 mmol/L; ABG OXYGEN SATURATION 96.4 % (92.0-98.5); ABG PCO2 26.6 mmHg (35.0-45.0); ABG PH 7.539 (7.350-7.450); AaDO2 101.6 mmHg; COHb 0.3 % (0.5-1.5); MetHb 0.1 % (0.0-1.5); PEEP,BG 0 cm H2O; SITE, ABG Right Brachial; VT, ABG 475 mL
[2022-08-23] MEDS: CITRIC ACID/SODIUM CITRATE (BICITRA)15 ML UDC PO SCH ×4 (08:33→21:02)
[2022-08-23] MEDS: ASPIRIN 81 MG TAB.CHEW PO SCH (08:33)
[2022-08-23] MEDS: AMLODIPINE BESYLATE 10 MG TABLET PO SCH (08:33)
[2022-08-23] MEDS: FOLIC ACID 1 MG TABLET PO SCH (08:33)
[2022-08-23] MEDS: PANTOPRAZOLE 40 MG/PACK PACK GT SCH (08:33)
[2022-08-23] MEDS: POTASSIUM CHLORIDE 20 MEQ POWDER PACKET GT SCH (08:33)
[2022-08-23] MEDS: MEROPENEM 500 MG in IV NS 0.9% 50 ML IV SCH (12:26)
[2022-08-23] MEDS: IV NS 0.9% 250 ML IV PRN (15:43)
[2022-08-23] MEDS: ATORVASTATIN 10 MG TABLET PO SCH (21:03)
[2022-08-23 21:28] LABS: HEMOGLOBIN 8.4 g/dL (11.5-14.8)
[2022-08-24] VITALS (93 sets, daily range): BP systolic 86–184; BP diastolic 39–106
[2022-08-24] MEDS: ALBUTEROL FS 2.5 MG/3 ML VIAL.NEB NEB SCH ×4 (02:02→19:28)
[2022-08-24] MEDS: hydrALAZINE HCL IV 20 MG VIAL IV PRN (03:21)
[2022-08-24 04:55] LABS: BASOPHILS % (AUTO) 0.1 % (0.0-2.0); EOSINOPHILS % (AUTO) 0.5 % (0.0-6.0); HEMATOCRIT 30 % (33-45); HEMOGLOBIN 9.1 g/dL (11.5-14.8); LYMPHOCYTES # (AUTO) 8.9 K/uL (0.8-4.8); LYMPHOCYTES % (AUTO) 27.9 % (20.0-44.0); MEAN CORPUSCULAR HGB CONC 31 g/dl (31.0-36.0); MEAN CORPUSCULAR VOLUME 85 fL (82-100); MONOCYTES # (AUTO) 3.2 K/uL (0.1-1.30); MONOCYTES % (AUTO) 9.9 % (2.0-12.0); NEUTROPHILS # (AUTO) 19.7 K/uL (1.8-8.9); NEUTROPHILS % (AUTO) 61.6 % (43.0-81.0); PLATELET COUNT (AUTO) 283 K/uL (150-450); RED BLOOD CELL COUNT(AUTO) 3.47 MIL/uL (4.0-5.2)
[2022-08-24 04:58] LABS: CALCIUM, SERUM 8.8 mg/dL (8.5-10.1); CARBON DIOXIDE 27 mmol/L (21-32); CHLORIDE 105 mmol/L (98-107); CREATININE 2.3 mg/dL (0.6-1.3); GLUCOSE 120 mg/dL (74-106); POTASSIUM 3.7 mmol/L (3.5-5.1); SODIUM SERUM 140 mmol/L (136-145); UREA NITROGEN, BLOOD 32 mg/dL (7-18)
[2022-08-24 05:04] LABS: ALANINE AMINOTRANSFERASE 44 U/L (12-78); ALBUMIN 1.8 g/dL (3.4-5.0); ALKALINE PHOSPHATASE 199 U/L (46-116); ASPARTATE AMINOTRANSFERASE 81 U/L (15-37); BILIRUBIN,TOTAL 0.3 mg/dL (0.2-1.0)
[2022-08-24] MEDS ORDERED: VANCOMYCIN 1 GM in IV D5W 250 ML IV ONE (09:00)
[2022-08-24] MEDS: POTASSIUM CHLORIDE 20 MEQ POWDER PACKET GT SCH (09:01)
[2022-08-24] MEDS: PANTOPRAZOLE 40 MG/PACK PACK GT SCH (09:01)
[2022-08-24] MEDS: CITRIC ACID/SODIUM CITRATE (BICITRA)15 ML UDC PO SCH ×4 (09:02→22:00)
[2022-08-24] MEDS: ASPIRIN 81 MG TAB.CHEW PO SCH (09:02)
[2022-08-24] MEDS: FOLIC ACID 1 MG TABLET PO SCH (09:02)
[2022-08-24] MEDS: AMLODIPINE BESYLATE 10 MG TABLET PO SCH (09:05)
[2022-08-24] MEDS ORDERED: VANCOMYCIN 500 MG in IV D5W 100 ML IV PRN (09:30)
[2022-08-24] MEDS: PROPOFOL 100 ML IV PRN (09:49)
[2022-08-24 12:19] LABS: ABG BASE EXCESS 1.3 mmol/L; ABG OXYGEN SATURATION 96.7 % (92.0-98.5); ABG PCO2 31.7 mmHg (35.0-45.0); ABG PH 7.499 (7.350-7.450); ABG PO2 87.6 mmHg (75.0-100.0); AaDO2 89.1 mmHg; COHb 0.3 % (0.5-1.5); MetHb 0.2 % (0.0-1.5); O2Hb 96.2 % (94.0-97.0); PEEP,BG 0 cm H2O; SITE, ABG Right Radial; VT, ABG 450 mL
[2022-08-24] MEDS: MEROPENEM 500 MG in IV NS 0.9% 50 ML IV SCH (12:45)
[2022-08-24 13:42] LABS: BAND % (MANUAL) 6 % (0.0-5.0); LYMPHOCYTES % (MANUAL) 23 % (16-48); METAMYELOCYTES % 1 % (0-0); MONOCYTES % (MANUAL) 10 % (0-11.0); MYELOCYTES % 4 % (0-0); NEUTROPHILS % (MANUAL) 56 (42-76)
[2022-08-24] MEDS: METRONIDAZOLE 500MG/ NS 100ML 500 MG in PREMIX 1 EA IV SCH ×2 (13:46→22:00)
[2022-08-24] MEDS: NEPRO 1,000 ML BOTTLE GT PRN ×2 (13:56→14:00)
[2022-08-24 14:32] LABS: HEMOGLOBIN 8.6 g/dL (11.5-14.8)
[2022-08-24] MEDS ORDERED: METRONIDAZOLE 500MG/ NS 100ML 500 MG in PREMIX 1 EA IV SCH (21:00)
[2022-08-24 21:19] LABS: HEMOGLOBIN 8.4 g/dL (11.5-14.8)
[2022-08-24] MEDS: ATORVASTATIN 10 MG TABLET PO SCH (22:00)
[2022-08-25] VITALS (43 sets, daily range): BP systolic 110–155; BP diastolic 65–91
[2022-08-25] MEDS: ALBUTEROL FS 2.5 MG/3 ML VIAL.NEB NEB SCH ×4 (01:15→19:35)
[2022-08-25 04:18] LABS: HEMOGLOBIN 8.3 g/dL (11.5-14.8)
[2022-08-25 04:34] LABS: ALANINE AMINOTRANSFERASE 37 U/L (12-78); ALBUMIN 1.7 g/dL (3.4-5.0); ALKALINE PHOSPHATASE 156 U/L (46-116); ASPARTATE AMINOTRANSFERASE 57 U/L (15-37); BILIRUBIN,TOTAL 0.2 mg/dL (0.2-1.0); CALCIUM, SERUM 8.5 mg/dL (8.5-10.1); CARBON DIOXIDE 28 mmol/L (21-32); CHLORIDE 109 mmol/L (98-107); CREATININE 2.4 mg/dL (0.6-1.3); GLUCOSE 142 mg/dL (74-106); POTASSIUM 3.6 mmol/L (3.5-5.1); SODIUM SERUM 144 mmol/L (136-145); TOTAL PROTEIN, SERUM 6.4 g/dL (6.4-8.2); UREA NITROGEN, BLOOD 39 mg/dL (7-18)
[2022-08-25] MEDS: METRONIDAZOLE 500MG/ NS 100ML 500 MG in PREMIX 1 EA IV SCH ×3 (05:43→21:03)
[2022-08-25 08:22] LABS: BASOPHILS # (AUTO) 0.1 K/uL (0.0-0.2); BASOPHILS % (AUTO) 0.3 % (0.0-2.0); EOSINOPHILS % (AUTO) 0.4 % (0.0-6.0); HEMATOCRIT 26 % (33-45); HEMOGLOBIN 8.3 g/dL (11.5-14.8); LYMPHOCYTES # (AUTO) 3.5 K/uL (0.8-4.8); LYMPHOCYTES % (AUTO) 15.7 % (20.0-44.0); MEAN CORPUSCULAR HGB CONC 31 g/dl (31.0-36.0); MEAN CORPUSCULAR VOLUME 86 fL (82-100); NEUTROPHILS # (AUTO) 16.7 K/uL (1.8-8.9); NEUTROPHILS % (AUTO) 74.6 % (43.0-81.0); PLATELET COUNT (AUTO) 273 K/uL (150-450); RED BLOOD CELL COUNT(AUTO) 3.09 MIL/uL (4.0-5.2); WHITE BLOOD COUNT (AUTO) 22.4 K/uL (4.3-11.0)
[2022-08-25] MEDS: AMLODIPINE BESYLATE 10 MG TABLET PO SCH (09:00)
[2022-08-25] MEDS: IV NS 0.9% 250 ML IV PRN (10:22)
[2022-08-25] MEDS: POTASSIUM CHLORIDE 20 MEQ POWDER PACKET GT SCH (11:19)
[2022-08-25] MEDS: ASPIRIN 81 MG TAB.CHEW PO SCH (11:19)
[2022-08-25] MEDS: CITRIC ACID/SODIUM CITRATE (BICITRA)15 ML UDC PO SCH ×4 (11:19→21:02)
[2022-08-25] MEDS: FOLIC ACID 1 MG TABLET PO SCH (11:19)
[2022-08-25] MEDS: PANTOPRAZOLE 40 MG/PACK PACK GT SCH (11:19)
[2022-08-25] MEDS: MEROPENEM 500 MG in IV NS 0.9% 50 ML IV SCH (13:51)
[2022-08-25 14:41] LABS: HEMOGLOBIN 8.6 g/dL (11.5-14.8)
[2022-08-25 18:52] LABS: BAND % (MANUAL) 2 % (0.0-5.0); LYMPHOCYTES % (MANUAL) 16 % (16-48); MONOCYTES % (MANUAL) 5 % (0-11.0); NEUTROPHILS % (MANUAL) 77 (42-76)
[2022-08-25] MEDS: NEPRO 1,000 ML BOTTLE GT PRN (19:29)
[2022-08-25] MEDS: ATORVASTATIN 10 MG TABLET PO SCH (21:03)
[2022-08-25 21:14] LABS: HEMOGLOBIN 8.5 g/dL (11.5-14.8)
[2022-08-26] VITALS (35 sets, daily range): BP systolic 92–138; BP diastolic 50–89
[2022-08-26] MEDS: ALBUTEROL FS 2.5 MG/3 ML VIAL.NEB NEB SCH ×4 (01:02→19:30)
[2022-08-26 05:39] LABS: ABG PCO2 34.1 mmHg (35.0-45.0); ABG PH 7.501 (7.350-7.450); ABG PO2 93.6 mmHg (75.0-100.0); COHb 0.3 % (0.5-1.5); MetHb 0.1 % (0.0-1.5); O2Hb 96.4 % (94.0-97.0); SITE, ABG Right Radial; VENT MODE, BG AC 16; VT, ABG 450 mL
[2022-08-26 05:48] LABS: BASOPHILS % (AUTO) 0.2 % (0.0-2.0); EOSINOPHILS % (AUTO) 0.1 % (0.0-6.0); HEMATOCRIT 27 % (33-45); HEMOGLOBIN 8.3 g/dL (11.5-14.8); LYMPHOCYTES # (AUTO) 2.1 K/uL (0.8-4.8); LYMPHOCYTES % (AUTO) 7.5 % (20.0-44.0); MEAN CORPUSCULAR HGB CONC 31 g/dl (31.0-36.0); MEAN CORPUSCULAR VOLUME 86 fL (82-100); MONOCYTES # (AUTO) 1.6 K/uL (0.1-1.30); MONOCYTES % (AUTO) 5.6 % (2.0-12.0); NEUTROPHILS # (AUTO) 24.4 K/uL (1.8-8.9); NEUTROPHILS % (AUTO) 86.6 % (43.0-81.0); PLATELET COUNT (AUTO) 320 K/uL (150-450); RED BLOOD CELL COUNT(AUTO) 3.11 MIL/uL (4.0-5.2); WHITE BLOOD COUNT (AUTO) 28.2 K/uL (4.3-11.0)
[2022-08-26 06:04] LABS: ALANINE AMINOTRANSFERASE 39 U/L (12-78); ALBUMIN 1.7 g/dL (3.4-5.0); ALKALINE PHOSPHATASE 155 U/L (46-116); ASPARTATE AMINOTRANSFERASE 62 U/L (15-37); BILIRUBIN,TOTAL 0.2 mg/dL (0.2-1.0); CALCIUM, SERUM 8.8 mg/dL (8.5-10.1); CARBON DIOXIDE 28 mmol/L (21-32); CHLORIDE 109 mmol/L (98-107); GLUCOSE 128 mg/dL (74-106); PHOSPHORUS 3.8 mg/dL (2.5-4.9); POTASSIUM 3.3 mmol/L (3.5-5.1); SODIUM SERUM 145 mmol/L (136-145); TOTAL PROTEIN, SERUM 6.3 g/dL (6.4-8.2); UREA NITROGEN, BLOOD 37 mg/dL (7-18)
[2022-08-26] MEDS: METRONIDAZOLE 500MG/ NS 100ML 500 MG in PREMIX 1 EA IV SCH ×3 (06:09→21:25)
[2022-08-26] MEDS: POTASSIUM CHLORIDE 20 MEQ POWDER PACKET GT SCH (09:21)
[2022-08-26] MEDS: ASPIRIN 81 MG TAB.CHEW PO SCH (09:22)
[2022-08-26] MEDS: PANTOPRAZOLE 40 MG/PACK PACK GT SCH (09:23)
[2022-08-26] MEDS: FOLIC ACID 1 MG TABLET PO SCH (09:23)
[2022-08-26] MEDS: CITRIC ACID/SODIUM CITRATE (BICITRA)15 ML UDC PO SCH ×4 (09:23→21:25)
[2022-08-26] MEDS: AMLODIPINE BESYLATE 10 MG TABLET PO SCH (09:23)
[2022-08-26] MEDS: MEROPENEM 500 MG in IV NS 0.9% 50 ML IV SCH ×2 (13:14→21:24)
[2022-08-26 13:23] LABS: HEMOGLOBIN 7.6 g/dL (11.5-14.8)
[2022-08-26] MEDS: IV NS 0.9% 250 ML IV PRN (13:47)
[2022-08-26] MEDS: NEPRO 1,000 ML BOTTLE GT PRN (18:33)
[2022-08-26 20:15] LABS: HEMOGLOBIN 7.9 g/dL (11.5-14.8)
[2022-08-26] MEDS: ATORVASTATIN 10 MG TABLET PO SCH (21:25)
[2022-08-26] MEDS: ACETAMINOPHEN 325 MG TABLET PO PRN (22:56)
[2022-08-27] VITALS (25 sets, daily range): BP systolic 103–172; BP diastolic 52–85
[2022-08-27] MEDS: ALBUTEROL FS 2.5 MG/3 ML VIAL.NEB NEB SCH ×4 (01:30→20:08)
[2022-08-27 05:21] LABS: HEMOGLOBIN 8.2 g/dL (11.5-14.8)
[2022-08-27] MEDS: METRONIDAZOLE 500MG/ NS 100ML 500 MG in PREMIX 1 EA IV SCH ×3 (05:34→22:00)
[2022-08-27 05:35] LABS: ALANINE AMINOTRANSFERASE 28 U/L (12-78); ALBUMIN 1.6 g/dL (3.4-5.0); ALKALINE PHOSPHATASE 135 U/L (46-116); ASPARTATE AMINOTRANSFERASE 40 U/L (15-37); BILIRUBIN,TOTAL 0.2 mg/dL (0.2-1.0); CALCIUM, SERUM 8.3 mg/dL (8.5-10.1); CARBON DIOXIDE 29 mmol/L (21-32); CHLORIDE 115 mmol/L (98-107); CREATININE 2.4 mg/dL (0.6-1.3); GLUCOSE 163 mg/dL (74-106); POTASSIUM 3.9 mmol/L (3.5-5.1); SODIUM SERUM 150 mmol/L (136-145); UREA NITROGEN, BLOOD 52 mg/dL (7-18)
[2022-08-27] MEDS: ASPIRIN 81 MG TAB.CHEW PO SCH (08:03)
[2022-08-27] MEDS: CITRIC ACID/SODIUM CITRATE (BICITRA)15 ML UDC PO SCH ×4 (08:03→21:59)
[2022-08-27] MEDS: MEROPENEM 500 MG in IV NS 0.9% 50 ML IV SCH ×2 (08:03→21:59)
[2022-08-27] MEDS: POTASSIUM CHLORIDE 20 MEQ POWDER PACKET GT SCH (08:04)
[2022-08-27] MEDS: PANTOPRAZOLE 40 MG/PACK PACK GT SCH (08:04)
[2022-08-27] MEDS: AMLODIPINE BESYLATE 10 MG TABLET PO SCH (08:04)
[2022-08-27] MEDS: FOLIC ACID 1 MG TABLET PO SCH (08:04)
[2022-08-27] MEDS: IV NS 0.9% 250 ML IV PRN (11:32)
[2022-08-27] MEDS: METOPROLOL TARTRATE 50 MG TABLET GT SCH ×2 (12:00→17:01)
[2022-08-27] MEDS: ACETAMINOPHEN 325 MG TABLET PO PRN (12:02)
[2022-08-27 12:15] LABS: HEMOGLOBIN 8.1 g/dL (11.5-14.8)
[2022-08-27] MEDS: NEPRO 1,000 ML BOTTLE GT PRN (15:46)
[2022-08-27 21:33] LABS: HEMOGLOBIN 8.2 g/dL (11.5-14.8)
[2022-08-27] MEDS: ATORVASTATIN 10 MG TABLET PO SCH (21:59)
[2022-08-28] VITALS (25 sets, daily range): BP systolic 110–163; BP diastolic 58–100
[2022-08-28] MEDS: METOPROLOL TARTRATE 50 MG TABLET GT SCH ×4 (00:05→17:26)
[2022-08-28] MEDS: ALBUTEROL FS 2.5 MG/3 ML VIAL.NEB NEB SCH ×4 (00:58→19:56)
[2022-08-28] MEDS: METRONIDAZOLE 500MG/ NS 100ML 500 MG in PREMIX 1 EA IV SCH ×3 (05:38→21:15)
[2022-08-28 05:53] LABS: HEMOGLOBIN 8.2 g/dL (11.5-14.8)
[2022-08-28 06:07] LABS: ALANINE AMINOTRANSFERASE 28 U/L (12-78); ALBUMIN 1.6 g/dL (3.4-5.0); ALKALINE PHOSPHATASE 145 U/L (46-116); ASPARTATE AMINOTRANSFERASE 47 U/L (15-37); BILIRUBIN,TOTAL 0.3 mg/dL (0.2-1.0); CALCIUM, SERUM 8.2 mg/dL (8.5-10.1); CARBON DIOXIDE 24 mmol/L (21-32); CHLORIDE 110 mmol/L (98-107); CREATININE 2.1 mg/dL (0.6-1.3); GLUCOSE 160 mg/dL (74-106); MAGNESIUM 1.9 mg/dL (1.8-2.4); PHOSPHORUS 3.1 mg/dL (2.5-4.9); POTASSIUM 4.4 mmol/L (3.5-5.1); SODIUM SERUM 144 mmol/L (136-145); UREA NITROGEN, BLOOD 48 mg/dL (7-18)
[2022-08-28 07:02] LABS: BASOPHILS # (AUTO) 0.1 K/uL (0.0-0.2); BASOPHILS % (AUTO) 0.3 % (0.0-2.0); EOSINOPHILS % (AUTO) 0.9 % (0.0-6.0); HEMATOCRIT 26 % (33-45); LYMPHOCYTES # (AUTO) 5.4 K/uL (0.8-4.8); LYMPHOCYTES % (AUTO) 17.8 % (20.0-44.0); MEAN CORPUSCULAR HGB CONC 31 g/dl (31.0-36.0); MEAN CORPUSCULAR VOLUME 87 fL (82-100); MONOCYTES # (AUTO) 1.6 K/uL (0.1-1.30); MONOCYTES % (AUTO) 5.3 % (2.0-12.0); NEUTROPHILS # (AUTO) 22.8 K/uL (1.8-8.9); NEUTROPHILS % (AUTO) 75.7 % (43.0-81.0); PLATELET COUNT (AUTO) 336 K/uL (150-450); RED BLOOD CELL COUNT(AUTO) 2.96 MIL/uL (4.0-5.2)
[2022-08-28 07:04] LABS: WHITE BLOOD COUNT (AUTO) 30.2 K/uL (4.3-11.0)
[2022-08-28] MEDS: AMLODIPINE BESYLATE 10 MG TABLET PO SCH (08:02)
[2022-08-28] MEDS: PANTOPRAZOLE 40 MG/PACK PACK GT SCH (08:02)
[2022-08-28] MEDS: FOLIC ACID 1 MG TABLET PO SCH (08:02)
[2022-08-28] MEDS: MEROPENEM 500 MG in IV NS 0.9% 50 ML IV SCH ×2 (08:02→21:15)
[2022-08-28] MEDS: POTASSIUM CHLORIDE 20 MEQ POWDER PACKET GT SCH (08:02)
[2022-08-28] MEDS: CITRIC ACID/SODIUM CITRATE (BICITRA)15 ML UDC PO SCH ×4 (08:02→21:15)
[2022-08-28] MEDS: ASPIRIN 81 MG TAB.CHEW PO SCH (08:02)
[2022-08-28] MEDS: IV NS 0.9% 250 ML IV PRN (10:08)
[2022-08-28] MEDS: NEPRO 1,000 ML BOTTLE GT PRN (12:10)
[2022-08-28 12:58] LABS: HEMOGLOBIN 8.2 g/dL (11.5-14.8)
[2022-08-28 21:08] LABS: HEMOGLOBIN 7.7 g/dL (11.5-14.8)
[2022-08-28] MEDS: ATORVASTATIN 10 MG TABLET PO SCH (21:15)
[2022-08-28 22:45] LABS: BAND % (MANUAL) 1 % (0.0-5.0); LYMPHOCYTES % (MANUAL) 18 % (16-48); MONOCYTES % (MANUAL) 6 % (0-11.0); NEUTROPHILS % (MANUAL) 75 (42-76)
[2022-08-29] VITALS (50 sets, daily range): BP systolic 56–130; BP diastolic 37–85
[2022-08-29] MEDS: METOPROLOL TARTRATE 50 MG TABLET GT SCH ×4 (00:02→16:33)
[2022-08-29] MEDS: ALBUTEROL FS 2.5 MG/3 ML VIAL.NEB NEB SCH ×3 (01:37→13:30)
[2022-08-29 05:30] LABS: CARBON DIOXIDE 28 mmol/L (21-32); CHLORIDE 106 mmol/L (98-107); GLUCOSE 130 mg/dL (74-106); POTASSIUM 4.2 mmol/L (3.5-5.1); SODIUM SERUM 137 mmol/L (136-145); UREA NITROGEN, BLOOD 53 mg/dL (7-18)
[2022-08-29 05:38] LABS: ALANINE AMINOTRANSFERASE 27 U/L (12-78); ALBUMIN 1.6 g/dL (3.4-5.0); ALKALINE PHOSPHATASE 139 U/L (46-116); ASPARTATE AMINOTRANSFERASE 48 U/L (15-37); BILIRUBIN,TOTAL 0.2 mg/dL (0.2-1.0); TOTAL PROTEIN, SERUM 5.8 g/dL (6.4-8.2)
[2022-08-29 05:42] LABS: ABG BASE EXCESS -2.1 mmol/L; ABG PCO2 27.9 mmHg (35.0-45.0); ABG PH 7.487 (7.350-7.450); ABG PO2 107.9 mmHg (75.0-100.0); AaDO2 73.2 mmHg; COHb 0.2 % (0.5-1.5); MetHb 0.1 % (0.0-1.5); O2Hb 97.7 % (94.0-97.0); PEEP,BG 0 cm H2O; SITE, ABG Right Brachial; VENT MODE, BG AC 16 450 30% +0; VT, ABG 450 mL
[2022-08-29] MEDS: METRONIDAZOLE 500MG/ NS 100ML 500 MG in PREMIX 1 EA IV SCH ×2 (05:49→14:00)
[2022-08-29] MEDS: CITRIC ACID/SODIUM CITRATE (BICITRA)15 ML UDC PO SCH ×4 (08:11→20:04)
[2022-08-29] MEDS: MEROPENEM 500 MG in IV NS 0.9% 50 ML IV SCH (08:11)
[2022-08-29] MEDS: PANTOPRAZOLE 40 MG/PACK PACK GT SCH (08:11)
[2022-08-29] MEDS: ASPIRIN 81 MG TAB.CHEW PO SCH (08:11)
[2022-08-29] MEDS: POTASSIUM CHLORIDE 20 MEQ POWDER PACKET GT SCH (08:12)
[2022-08-29] MEDS: FOLIC ACID 1 MG TABLET PO SCH (08:12)
[2022-08-29] MEDS: AMLODIPINE BESYLATE 10 MG TABLET PO SCH (08:14)
[2022-08-29] MEDS ORDERED: DC PROPOFOL WHEN EXTUBATED XX PRN (09:00)
[2022-08-29] MEDS: LORAZEPAM INJ 2 MG/ML VIAL IVP PRN ×3 (10:22→12:30)
[2022-08-29] MEDS: MORPHINE SULFATE INJ 4 MG/ML DISP.SYRIN IV PRN ×3 (10:23→12:30)
[2022-08-29] MEDS ORDERED: MORPHINE SULFATE PF DRIP 250 MG in IV D5W 240 ML IV STA (10:34)
[2022-08-29] MEDS ORDERED: MORPHINE SULFATE PF DRIP 250 MG in IV D5W 240 ML IV PRN (13:00)
== END 2022-08-30 05:45 | DRG 720 ==
LOC: ER 13:33 → ICU 20:52 → TELE 08-29 18:32
PROVIDERS: ADMIT Nurse Practitioner Acute Care; ATTEND Internal Medicine
PROC: 05H533Z Insertion of Infusion Device into Right Subclavian Vein, Percutaneous Approach (ICD-10-PCS; 2022-08-17)
PROC: B546ZZA Ultrasonography of Right Subclavian Vein, Guidance (ICD-10-PCS; 2022-08-17)
PROC: 5A1955Z Respiratory Ventilation, Greater than 96 Consecutive Hours (ICD-10-PCS; principal; 2022-08-18)
PROC: 0BH18EZ Insertion of Endotracheal Airway into Trachea, Via Natural or Artificial Opening Endoscopic (ICD-10-PCS; 2022-08-18)
PROC: 02HV33Z Insertion of Infusion Device into Superior Vena Cava, Percutaneous Approach (ICD-10-PCS; 2022-08-18)
PROC: B548ZZA Ultrasonography of Superior Vena Cava, Guidance (ICD-10-PCS; 2022-08-18)
PROC: 30233N1 Transfusion of Nonautologous Red Blood Cells into Peripheral Vein, Percutaneous Approach (ICD-10-PCS; 2022-08-20)
PROC: 06HY33Z Insertion of Infusion Device into Lower Vein, Percutaneous Approach (ICD-10-PCS; 2022-08-22)
PROC: 5A1D70Z Performance of Urinary Filtration, Intermittent, Less than 6 Hours Per Day (ICD-10-PCS; 2022-08-22)
DX: A41.9 Sepsis, unspecified organism (principal); J96.01 Acute respiratory failure with hypoxia; N17.0 Acute kidney failure with tubular necrosis; R65.21 Severe sepsis with septic shock; G93.41 Metabolic encephalopathy; T17.990A Other foreign object in respiratory tract, part unspecified in causing asphyxiation, initial encounter; E86.0 Dehydration; D64.9 Anemia, unspecified; I48.91 Unspecified atrial fibrillation; Z51.5 Encounter for palliative care; I46.9 Cardiac arrest, cause unspecified; E87.0 Hyperosmolality and hypernatremia; I21.A1 Myocardial infarction type 2; N39.0 Urinary tract infection, site not specified; E87.1 Hypo-osmolality and hyponatremia; E87.20 Acidosis, unspecified; E87.6 Hypokalemia; E87.70 Fluid overload, unspecified; I16.0 Hypertensive urgency; J44.9 Chronic obstructive pulmonary disease, unspecified; R13.10 Dysphagia, unspecified; Z99.2 Dependence on renal dialysis; Z20.822 Contact with and (suspected) exposure to COVID-19; F03.90 Unspecified dementia, unspecified severity, without behavioral disturbance, psychotic disturbance, mood disturbance, and anxiety; J45.909 Unspecified asthma, uncomplicated; N18.9 Chronic kidney disease, unspecified; B96.20 Unspecified Escherichia coli [E. coli] as the cause of diseases classified elsewhere; Z16.12 Extended spectrum beta lactamase (ESBL) resistance; R45.851 Suicidal ideations; I35.1 Nonrheumatic aortic (valve) insufficiency; I12.9 Hypertensive chronic kidney disease with stage 1 through stage 4 chronic kidney disease, or unspecified chronic kidney disease; X58.XXXA Exposure to other specified factors, initial encounter; Y93.9 Activity, unspecified; Y92.009 Unspecified place in unspecified non-institutional (private) residence as the place of occurrence of the external cause
CPT/HCPCS: 31720; 36410; 36415; 36569; 36600; 70450-TC; 71045-TC; 76770-TC; 80048-TC; 80053-TC; 80061-TC; 80076-TC; 80202-TC; 81001; 82140-TC; 82803-TC; 82962-TC; 83605-TC; 83735-TC; 83880; 84100-TC; 84295-TC; 84478-TC; 84484-TC; 85025-TC; 85027-TC; 85730-TC; 86706; 86850-TC; 87040-TC; 87081-TC; 87086-TC; 87340; 90935-TC; 92526; 92611-TC; 93307-TC; 94003-TC; 94760-TC; 94762-TC; 94799-TC; A4216; C9113; C9803; G0378; J0171; J0360; J0610; J1650; J2060; J2185; J2270; J2274; J2370; J2543; J3370; J3475; J3480; J3490; J7030; J7040; J7042; J7050; J7060; J7070; P9016